=== PATIENT | male | born 1980 | race Two or more races ===

== ENCOUNTER 2018-04-08 22:52 | Emergency (ER) | payer MEDICAID ==
[~2018-04-08] VITALS: Ht 182.9 cm; Wt 83.5 kg
[2018-04-08 23:07] VITALS: BP 118/78
--- NOTE | 2018-04-09 00:05 | Emergency Room Report ---
History of Present Illness General Chief Complaint: Medical Clearance Source: Patient Present Illness HPI The patient was brought to the ED in police custody for clearance to book into the correction. The patient does not have any medical complaints at this time. Other than slight pain at right handcuff site. Initial medication list was reviewed by me. Allergies: Coded Allergies: AMOXICILLIN (Verified Allergy, Unknown, 04/08/18) Nursing Documentation-[facility] [place] Past Medical History: No Stated History Review of Systems Constitutional: Denies: fever Eye: Denies: acuity changes Respiratory: Denies: cough, shortness of breath Cardiovascular: Denies: chest pain Gastrointestinal: Denies: nausea, vomiting Skin: Denies: rash Neurological: Denies: headache Physical Exam Vital Signs Date Time Temp Pulse Resp B/P (MAP) Pulse Ox O2 Delivery O2 Flow Rate FiO2 04/08/18 23:04 98.2 82 16 118/78 96 Room Air 98.2 General Appearance: well appearing, no apparent distress Head: normocephalic, atraumatic ENT: hearing grossly normal, normal voice Neck: full range of motion, supple Respiratory: no respiratory distress, speaking full sentences Musculoskeletal: non-tender, other - all normal Neurologic: alert, normal gait Psychiatric: mood/affect normal Skin: no rash Medical Decision Making Diagnostic Impression: Primary Impression: Medical clearance for incarceration Last Vital Signs Date Time Temp Pulse Resp B/P (MAP) Pulse Ox O2 Delivery O2 Flow Rate FiO2 04/08/18 23:07 98.2 82 16 118/78 96 Room Air 98.2 Disposition: D/C TO LAW ENFORCEMENT IN CUST Condition: Stable Patient Instructions: Medical Screening Exam Kerwin Rodriguez M.D. Apr 09, 2018 00:04
[2018-04-09 00:09] VITALS: BP 118/78
== END 2018-04-09 00:09 ==
LOC: EMR 23:15
DX: M79.641 Pain in right hand (principal); Z02.89 Encounter for other administrative examinations; Z88.0 Allergy status to penicillin
CPT/HCPCS: 99283